=== PATIENT | female | born 1945 | race Caucasian/White ===

== ENCOUNTER 2018-07-02 10:27 | Day surgery (SDC) | payer MEDICARE, OTHER ==
[2018-07-02] MEDS ORDERED: LIDOCAINE 2% MDV (20MG/ML) 20ML VIAL IV ONE (10:28)
[2018-07-02] MEDS ORDERED: PROPOFOL 10 MG/ML VIAL IV ONE (10:28)
--- NOTE | 2018-07-03 08:50 | Operative Note ---
OPERATION: Screening COLONOSCOPY. PREOPERATIVE DIAGNOSIS: Colon cancer screening, average risk. POSTOPERATIVE DIAGNOSIS: Normal exam. ESTIMATED BLOOD LOSS: None. SPECIMENS: None. PREPARATION QUALITY: Excellent. PROCEDURE: After informed consent was obtained from the patient, she was placed in the left lateral decubitus position in the endoscopy suite, sedated and monitored by the department of anesthesia. Digital rectal exam was unremarkable. A well-lubricated [id number] colonoscope was inserted into the rectum and advanced to the cecum. Preparation quality was excellent. The cecum and cecal bulb were inspected twice. The ileocecal valve was unremarkable. The cecum was unremarkable as was the appendiceal orifice. The ascending colon, transverse colon, descending colon, sigmoid colon, and rectum were unremarkable. The patient had a short rectum. I could not perform a J-turn maneuver. Inspection of the anorectum was unremarkable. The rectum also was unremarkable. RECOMMENDATIONS: Given the patient's age and negative exam and average risk, I would recommend she does not undergo another colonoscopy unless some symptoms warrant. As always, thank you for allowing me to participate in the healthcare of your patients. CC: JAIDEN HOPKINS MD, FACP JEDD
== END 2018-07-02 12:52 | disposition home or self-care (01) ==
LOC: HOP 10:27
PROVIDERS: ATTEND Internal Medicine Gastroenterology
DX: Z12.11 Encounter for screening for malignant neoplasm of colon (principal); I10 Essential (primary) hypertension; E78.00 Pure hypercholesterolemia, unspecified
CPT/HCPCS: 00812; G0121